=== PATIENT | female | born 1975 | race Caucasian/White ===

== ENCOUNTER 2017-10-03 13:25 | Emergency (ER) | payer BC, OTHER ==
[~2017-10-03] VITALS: Ht 157.5 cm; Wt 83.0 kg
[~2017-10-03 13:25] MED LIST: ACET-8386 PO; NAPR375T2 PO
[2017-10-03 13:45] VITALS: BP 152/94
--- NOTE | 2017-10-03 14:00 | NUR ---
Patient being evaluated by physician at bedside.
--- NOTE | 2017-10-03 14:03 | NUR ---
42/F c/o epigastric pain since 0900 this am. Patient has hx gastric ulcers. Pt states she had mac and cheese this am and pain started afterwards. Denies N/V/D. Denies fever or chills. AOX4, skin warm and dry normal to color for ethnicity. VSS.
[2017-10-03] MEDS ORDERED: PANTOPRAZOLE 40 MG TABEC PO ONE (14:10)
[2017-10-03] MEDS ORDERED: LIDOCAINE VISCOUS 2% 20 ML UDC PO ONE (14:10)
[2017-10-03] MEDS ORDERED: ALUMINUM HYD/MAG/SIMETHICONE 30 ML UDC PO ONE (14:10)
[2017-10-03 15:39] VITALS: BP 141/84
--- NOTE | 2017-10-03 15:39 | NUR ---
Patient discharged with v/s stable. Written and verbal after care instructions given and explained. Patient alert, oriented and verbalized understanding of instructions. Ambulatory with steady gait. All questions addressed prior to discharge. ID band removed. Patient advised to follow up with PMD. Rx of Omeprazole given. Patient educated on indication of medication including possible reaction and side effects. Opportunity to ask questions provided and answered.
== END 2017-10-03 15:39 | disposition home or self-care (01) ==
LOC: MED 13:25
DX: K29.70 Gastritis, unspecified, without bleeding (principal); K21.9 Gastro-esophageal reflux disease without esophagitis; Z79.899 Other long term (current) drug therapy; Z90.49 Acquired absence of other specified parts of digestive tract
CPT/HCPCS: 81002; 81025; 99284

== ENCOUNTER 2017-10-27 14:03 | Emergency (ER) | payer BC ==
[~2017-10-27] VITALS: Ht 167.6 cm; Wt 85.4 kg
[2017-10-27 14:49] VITALS: BP 123/79
--- NOTE | 2017-10-27 14:51 | NUR ---
PT AMBULATES BACK TO THE LOBBY
--- NOTE | 2017-10-27 15:56 | NUR ---
PT AMBULATES TO BED 5, REPORT GIVEN TO RHIANNA LOOMIS
[2017-10-27] MEDS: METOCLOPRAMIDE 10 MG TAB PO ONE (16:20)
--- NOTE | 2017-10-27 16:20 | NUR ---
ASSUMED CARE OF PT AT THIS TIME. C/O HEADACHE, NECK PAIN, DIZZINESS, AND NAUSEA S/P HITTING HER HEAD WHILE DIVING INTO A SHALLOW POOL. NO KO. AAOX4 WITH EVEN AND STEADY GAIT; PATIENT STATES PAIN OF 7/10; VSS; PATIENT POSITIONED FOR COMFORT; HOB ELEVATED; BEDRAILS UP X2; BED DOWN. ER MD MADE AWARE OF PT STATUS. WILL CONTINUE TO MONITOR.
[2017-10-27] MEDS: ACETAMINOPHEN 325 MG TAB PO ONE (16:21)
--- NOTE | 2017-10-27 19:27 | NUR ---
Patient discharged with v/s stable. Written and verbal after care instructions given and explained. Patient verbalized understanding. Ambulatory with steady gait. All questions addressed prior to discharge. Advised to follow up with PMD.
[2017-10-27 19:28] VITALS: BP 123/79
== END 2017-10-27 19:27 | disposition home or self-care (01) ==
LOC: MED 14:03
DX: S09.8XXA Other specified injuries of head, initial encounter (principal); F07.81 Postconcussional syndrome; Z90.49 Acquired absence of other specified parts of digestive tract; W22.8XXA Striking against or struck by other objects, initial encounter; Y93.89 Activity, other specified; Y99.8 Other external cause status; Y92.34 Swimming pool (public) as the place of occurrence of the external cause
CPT/HCPCS: 70450; 72125; 81025; 99284; J8597

== ENCOUNTER 2019-12-13 10:28 | Emergency (ER) | payer BC ==
[~2019-12-13] VITALS: Ht 162.6 cm; Wt 79.4 kg
[2019-12-13 10:41] VITALS: BP 157/68
--- NOTE | 2019-12-13 10:47 | NUR ---
44 Y/O FEMALE WITH RIGHT FOOT LACERATION ON BOTTOM OF FOOT S/P STEPPING ON A PIECE OF PLASTIC YESTERDAY. NOT ACTIVELY BLEEDING. PT STATES PAIN IS 6/10, HAS NOT TAKEN ANY PAIN MEDICATIONS THIS MORNING. PT CANNOT RECALL WHEN LAST TB WAS. CMS+. PT IS AMBULATORY WITH STEADY GAIT. NKA
[2019-12-13] MEDS ORDERED: KETOROLAC 60 MG/2 ML VIAL IM ONE (10:50)
[2019-12-13 11:39] VITALS: BP 157/68
== END 2019-12-13 11:40 | disposition home or self-care (01) ==
LOC: MED 10:28
DX: S91.311A Laceration without foreign body, right foot, initial encounter (principal); K21.9 Gastro-esophageal reflux disease without esophagitis; Z79.899 Other long term (current) drug therapy; Z90.49 Acquired absence of other specified parts of digestive tract; W26.8XXA Contact with other sharp object(s), not elsewhere classified, initial encounter; Y93.89 Activity, other specified; Y92.89 Other specified places as the place of occurrence of the external cause; Y99.8 Other external cause status
CPT/HCPCS: 90471; 90715; 96372; 99284; J1885

== ENCOUNTER 2022-03-17 16:53 | Emergency (ER) | payer BC ==
[~2022-03-17] VITALS: Ht 162.6 cm; Wt 85.7 kg
[2022-03-17 16:59] VITALS: BP 150/96
--- NOTE | 2022-03-17 17:03 | NUR ---
47 y/o female, c/o left hand 4th digit pain that started last night after she injured it on closing shower door. pt states she has a tingling sensation 7/10, does not radiate. site does have bruising, blue dye from medication with minimal avulsion to anterior finger nail. a&ox4, ambulates with steady gait. denies fever, chills, cough, sob or sore throat. pmh: denies nka med: denies
--- NOTE | 2022-03-17 17:40 | NUR ---
Patient ambulated with steady gait to bed 1.
[2022-03-17] MEDS ORDERED: IBUP-2213 PO (17:53)
[2022-03-17] MEDS ORDERED: BACI1PAC6 TP (17:53)
[2022-03-17] MEDS ORDERED: KETOROLAC 30 MG/ML VIAL IM ONE (17:55)
[2022-03-17] MEDS ORDERED: BACITRACIN OINT 500 UNITS/GM PKT TP ONE (17:55)
--- NOTE | 2022-03-17 18:22 | NUR ---
PT PLACED IN LEFT SHORT FINGER SPLINT AND WRAPPED WITH 1" MICHELE WRAP.
--- NOTE | 2022-03-17 18:33 | NUR ---
Patient discharged with v/s stable. Written and verbal after care instructions ABOUT FINGER FRACTURE given and explained. Patient alert, oriented and verbalized understanding of instructions. Ambulatory with steady gait. All questions addressed prior to discharge. ID band removed. Patient advised to follow up with PMD. Rx of BACITRACIN ZINC, MOTRIN given. Patient educated on indication of medication including possible reaction and side effects. Opportunity to ask questions provided and answered.
== END 2022-03-17 18:33 | disposition home or self-care (01) ==
LOC: MED 16:53
DX: S62.665A Nondisplaced fracture of distal phalanx of left ring finger, initial encounter for closed fracture (principal); K21.9 Gastro-esophageal reflux disease without esophagitis; Z90.49 Acquired absence of other specified parts of digestive tract; W45.8XXA Other foreign body or object entering through skin, initial encounter; Y93.89 Activity, other specified; Y92.89 Other specified places as the place of occurrence of the external cause; Y99.8 Other external cause status
CPT/HCPCS: 29130; 73140; 81025; 96372; 99283; J1885

== ENCOUNTER 2023-02-05 00:19 | Emergency (ER) | payer SELFPAY ==
[~2023-02-05] VITALS: Ht 162.6 cm; Wt 84.8 kg
[~2023-02-05 00:19] MED LIST changes: -ACET-8386 PO; +ACET-8905 PO; +BACI-418 TP; +IBUP-2213 PO
[2023-02-05 00:39] VITALS: BP 118/73; PULSE 88; RESP 18; TEMP 98.4; O2SAT 96
[2023-02-05] MEDS ORDERED: KETOROLAC 15 MG/ML VIAL IM ONE (03:15)
[2023-02-05] MEDS ORDERED: KETOROLAC 30 MG/ML VIAL ONE ×2 (03:39→03:42)
[2023-02-05] MEDS ORDERED: IBUP-2213 PO (03:53)
[2023-02-05 04:31] VITALS: BP 118/73; PULSE 88; RESP 18; TEMP 98.4; O2SAT 96
== END 2023-02-05 04:31 | disposition home or self-care (01) ==
LOC: MED 00:19
DX: S50.02XA Contusion of left elbow, initial encounter (principal); K21.9 Gastro-esophageal reflux disease without esophagitis; Z98.51 Tubal ligation status; Z79.899 Other long term (current) drug therapy; Z79.1 Long term (current) use of non-steroidal anti-inflammatories (NSAID); Z79.2 Long term (current) use of antibiotics; W01.198A Fall on same level from slipping, tripping and stumbling with subsequent striking against other object, initial encounter; Y92.89 Other specified places as the place of occurrence of the external cause; Y93.89 Activity, other specified; Y99.8 Other external cause status
CPT/HCPCS: 73080; 81025; 96372; 99283; J1885